=== PATIENT | male | born 1960 | race Caucasian/White ===

== ENCOUNTER 2017-05-03 00:44 | Observation (INO) ==
[2017-05-03] MEDS ORDERED: 0.9 % Sodium Chloride 1,000 ML IVC ONE (01:53)
[2017-05-03] MEDS ORDERED: *HR* Promethazine 25 MG/ML VIAL IVP ONE (01:53)
--- NOTE | 2017-05-03 01:55 | Emergency Department Note ---
Disposition Clinical Impression: Nausea and vomiting Qualifiers: Vomiting type: unspecified Vomiting Intractability: intractable Qualified Code( s): R11.2 - Nausea with vomiting, unspecified Disposition: Admitted As Inpatient Condition: Fair Time of Disposition: 06:49 Nausea/Vomiting/Diarrhea HPI - General Chief complaint: ED Nausea/Vomiting/Diarrhea Stated complaint: n/v weakness Time Seen by Provider: 05/03/17 01:14 Source: patient Mode of arrival: wheelchair Limitations: no limitations Nursing Notes Reviewed: Yes Vital Signs Reviewed: Yes - History of Present Illness HPI Narrative: Presents to the emergency department with continued complaints of nausea with vomiting. He was seen 2 days ago in the emergency department and at that time had a complete workup. His CT at that time was negative, labs were essentially normal. He is sent home with can prescription for Phenergan which she has used and then does seem to help with the nausea however tonight the nausea with the vomiting resumed and he has been unable to keep anything down. He states that the abdominal pain is less severe but the nausea is quite intense. He does not report any fever that he is aware of. He has not been around any sick contacts. Pt Subjective Complaint: nausea, vomiting, abdominal pain Onset (ago): day(s) (3-4) Description of emesis: watery Associated Abdominal Pain: Yes If pain, Location of pain: diffuse, epigastric Severity: moderate, severe Severity scale (1-10): 9 Quality: cramping Consistency: Worsening Improves with: nothing, vomiting Associated symptoms: Reports: denies other symptoms - Related Data Previous Rx's Medication Instructions Recorded Promethazine [Phenergan] 25 mg PO Q6HR PRN #10 tablet 04/30/17 Allergies Allergy/AdvReac Type Severity Reaction Status Date / Time No Known Drug Allergies Allergy See Verified 04/30/17 16:41 Comments All systems ED: reviewed and negative except as stated. Constitutional: Reports: weight change Eyes: Denies: eye pain, eye discharge, vision change ENT ED: Denies: ear pain, throat pain, dental pain, hearing loss, epistaxis, congestion, dysphagia Cardiovascular: Denies: chest pain, palpitations, dyspnea on exertion, edema, syncope Respiratory: Denies: cough, dyspnea, wheezes, hemoptysis, stridor Gastrointestinal: Reports: abdominal pain, nausea, vomiting. Denies: diarrhea, constipation, hematemesis, melena, hematochezia Genitourinary: Denies: urgency, dysuria, frequency, hematuria Musculoskeletal: Denies: back pain, neck pain, arthralgia, myalgia Integumentary: Denies: rash, abrasion, lesions Past Medical History - Past Medical History Attestation: Yes The following information was validated with the patient. Source: patient, nursing notes reviewed Medical history: Reports: CVA, hypertension, other Psychiatric history: Reports: anxiety, depression - Social History Smoking Status: Current every day smoker Smokeless Tobacco Status: No Alcohol use: Reports: rarely Drug use: Reports: none Physical Exam - General Limitations: no limitations General appearance: alert, in no apparent distress - Head Head exam: atraumatic, normocephalic, normal inspection - Eye Eye exam: Present: normal appearance, PERRL, EOMI - ENT ENT exam: normal exam, normal oropharynx, mucous membranes moist - Neck Neck exam: Present: normal inspection, full ROM, trachea midline - Chest Chest inspection: Present: normal inspection, symmetric chest wall rise - Respiratory Respiratory exam: Present: normal lung sounds bilaterally - Cardiovascular Cardiovascular exam: Present: regular rate, normal rhythm, normal heart sounds - Abdominal Exam Abdominal exam: Present: tenderness, diminished bowel sounds. Absent: distention, guarding, rebound Abdominal tenderness: Present: epigastrium - Extremities Exam Extremities exam: Present: normal inspection, full ROM. Absent: tenderness, pedal edema - Expanded Lower Extremity Exam Hip/Pelvis exam: Present: normal inspection, full ROM Upper leg exam: Present: normal inspection, full ROM Knee exam: Present: normal inspection, full ROM Lower leg exam: Present: normal inspection, full ROM Ankle exam: Present: normal inspection, full ROM Foot/toe exam: Present: normal inspection, full ROM Neurovascular/Tendon exam: Absent: motor deficit, sensory deficit, tendon deficit - Back Exam Back exam: Present: normal inspection, full ROM. Absent: tenderness - Neurological Exam Neurological exam: Present: alert, oriented X3 - Psychiatric Psychiatric exam: Present: normal affect, normal mood - Skin Skin exam: Present: warm, dry, intact, normal color Course Vital Signs Temperature 98.1 F 05/03/17 00:45 Pulse Rate 63 05/03/17 00:45 Respiratory Rate 18 05/03/17 00:45 Blood Pressure 163/97 05/03/17 00:45 O2 Sat by Pulse Oximetry 99 05/03/17 00:45 Temperature 0 F L 05/03/17 03:38 Pulse Rate 63 05/03/17 00:45 Respiratory Rate 18 05/03/17 03:38 Blood Pressure 158/88 05/03/17 03:38 O2 Sat by Pulse Oximetry 99 05/03/17 00:45 Oxygen Delivery Oxygen Delivery Room Air Nausea/Vomiting/Diarrhea - MDM Narrative Medical decision making narrative: intractable vomiting - Lab Data Lab results reviewed: Yes I reviewed the patient's lab results. Result diagrams: 05/03/17 02:11 05/03/17 02:11 Lab Results 05/03/17 05/03/17 Range/Units 02:11 02:11 WBC 10.2 (4.3-11.1) K/mcL RBC 6.09 H (4.19-5.50) M/mcL Hgb 17.4 H (12.9-16.9) g/dL Hct 52.2 H (37.5-50.1) % MCV 85.7 (83.0-100.0) fL MCH 28.6 (28.0-33.3) pg MCHC 33.3 (31.6-35.5) g/dL RDW 13.1 (11.5-14.5) % Plt Count 192 (140-400) K/mcL MPV 10.0 (9.4-12.4) fL Immature Gran % 0.4 (0-4) % Seg Neutrophils % 86.7 % Lymphocytes % 10.5 % Monocytes % 2.0 % Eosinophils % 0.1 % Basophils % 0.3 % Neutrophils # 8.9 (1.6-8.9) K/mcL Lymphocytes # 1.1 (0.6-4.6) K/mcL Monocytes # 0.2 (0.0-1.3) K/mcL Eosinophils # 0.0 (0.0-0.6) K/mcL Basophils # 0.0 (0.0-0.2) K/mcL Sodium 141 (136-145) mEq/L Potassium 3.7 (3.5-4.5) mEq/L Chloride 104 (98-109) mEq/L Carbon Dioxide 28 (19-29) mEq/L BUN 15 (8-26) mg/dL Creatinine 1.20 (0.72-1.25) mg/dL Est GFR ( Amer) > 60 (> 60) Est GFR (Non-Af Amer) > 60 (> 60) BUN/Creatinine Ratio 13 (6-26) Glucose 127 H (70-99) mg/dL Calculated Osmolality 294 (280-300) Calcium 9.7 (8.6-10.8) mg/dL Total Bilirubin 0.9 (0.2-1.2) mg/dL AST 18 (5-34) Units/L ALT 13 (0-55) Units/L Alkaline Phosphatase 75 (38-126) Units/L Serum Total Protein 7.5 (6.0-8.3) g/dL Albumin 3.9 (3.5-5.0) g/dL Globulin 3.6 H (2.4-3.5) g/dL Albumin/Globulin Ratio 1.1 (1.1-2.2) Lipase 14 (8-78) Units/L
[2017-05-03 02:17] LABS: Basophils % 0.3 %; Eosinophils % 0.1 %; Hematocrit 52.2 % (37.5-50.1); Hemoglobin 17.4 g/dL (12.9-16.9); Immature Granulocytes % 0.4 % (0-4); Lymphocytes # 1.1 K/mcL (0.6-4.6); Lymphocytes % 10.5 %; Mean Corpuscular HGB Conc 33.3 g/dL (31.6-35.5); Mean Corpuscular Hemoglobin 28.6 pg (28.0-33.3); Mean Corpuscular Volume 85.7 fL (83.0-100.0); Monocytes # 0.2 K/mcL (0.0-1.3); Neutrophils # 8.9 K/mcL (1.6-8.9); Platelet Count 192 K/mcL (140-400); Red Blood Count 6.09 M/mcL (4.19-5.50); Red Cell Distribution Width 13.1 % (11.5-14.5); Segmented Neutrophils % 86.7 %
[2017-05-03 02:33] LABS: Alanine Aminotransferase 13 Units/L (0-55); Albumin 3.9 g/dL (3.5-5.0); Albumin/Globulin Ratio 1.1 (1.1-2.2); Alkaline Phosphatase 75 Units/L (38-126); Aspartate Amino Transferase 18 Units/L (5-34); BUN/Creatinine Ratio 13 (6-26); Bilirubin,Total 0.9 mg/dL (0.2-1.2); Blood Urea Nitrogen 15 mg/dL (8-26); Calcium 9.7 mg/dL (8.6-10.8); Carbon Dioxide 28 mEq/L (19-29); Chloride 104 mEq/L (98-109); Globulin 3.6 g/dL (2.4-3.5); Glucose 127 mg/dL (70-99); Lipase 14 Units/L (8-78); Osmolality,Calculated 294 (280-300); Potassium 3.7 mEq/L (3.5-4.5); Sodium 141 mEq/L (136-145); Total Protein 7.5 g/dL (6.0-8.3); eGFR For African Americans > 60 (> 60); eGFR For Non-African Americans > 60 (> 60)
[2017-05-03] MEDS ORDERED: Naloxone 0.4 MG/ML INJ IVP PRN (05:29)
[2017-05-03] MEDS ORDERED: *HR* Promethazine 25 MG/ML VIAL IVP PRN (05:32)
--- NOTE | 2017-05-03 05:42 | Internal Med History&Physical ---
Date of Encounter: 05/03/17 Time of Encounter: 05:05 Assessment and Plan (1) Nausea and vomiting Current visit: Yes Status: Acute Likely of viral etiology continue supportive care will continue Phenergan 12.5mg IV q4h prn nausea/vomiting continue IV fluids Protonix 40mg IV qd clear liquid diet, advance as tolerated Qualifiers: Vomiting type: unspecified Vomiting Intractability: intractable Qualified Code(s): R11.2 - Nausea with vomiting, unspecified (2) Hypertension Current visit: Yes Status: Chronic continue to monitor continue Home meds Qualifiers: Hypertension type: essential hypertension Qualified Code(s): I10 - Essential (primary) hypertension (3) History of CVA (cerebrovascular accident) Current visit: Yes Status: Chronic reports of having residual left sided weakness but able to ambulate well without any distress continue ASA and Plavix (4) DVT prophylaxis Current visit: Yes Status: Acute Heparin SQ (5) Tobacco abuse Current visit: Yes Status: Acute smoking cessation counseling provided patient refused nicotine replacement therapy at this time Internal Medicine - H&P: HPI Chief complaint: nausea/vomiting Admitted From: Home Plans for Post Hospital Care: Home History of present illness: Mr. 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 Patient was seen in the ER two days ago for the same complains and was discharged after receiving IV fluids and Phenergan. His nausea was refractory to Zofran due to which Phenergan was started. He reports of mild relief with Phenergan and the nausea and vomiting has persisted. He states he has had minimal PO intake in the last two days. Also complains of epigastric discomfort at this time. Denies any preceding events prior to acute onset of this nausea. Denies any abd pain, fever , or chills. Reports of being an everyday smoker. Past Med Surg Social Fam HX - Past Medical History Medical history: CVA, hypertension, other Psychiatric history: anxiety, depression - Social History Smoking Status: Current every day smoker Smokeless Tobacco Status: No Alcohol use: rarely Drug use: none - Family History Father Living Status: Hx Family Cardiac Disorders: No Hx Family Respiratory Disorders: No Hx Family Cancer: Yes (prostate cancer) Hx Family GI Disorders: No Hx Family Genitourinary Disorders: No Hx Family Endocrine Disorder: No Hx Family Musculoskeletal Disorders: No Hx Family Neuromuscular Disorders: No Hx Family Neurologic Disorders: No Hx Family HEENT Disorders: No Hx Family Autoimmune Disorders: No Hx Family Reproductive Disorders: No Hx Family Psychosocial Disorders: No Hx Family Medical Disorders: No Internal Medicine - H&P: Meds Promethazine [Phenergan] 25 mg PO Q6HR PRN #10 tablet 04/30/17 [Rx] Allergies No Known Drug Allergies Allergy (Verified 04/30/17 16:41) See Comments All Systems PM: A 10-system review of systems was performed and is negative for pertinent findings except as documented above in the HPI. - Constitutional Constitutional: as per HPI - Constitutional Vitals: Temp Pulse Resp BP Pulse Ox 0 F L 63 18 158/88 99 05/03/17 03:38 05/03/17 00:45 05/03/17 03:38 05/03/17 03:38 05/03/17 00:45 General appearance: Present: cooperative, A&O X 3, no acute distress, answers questions appropriately - Head Head exam: Present: atraumatic, normocephalic - Eye Eye exam: Present: normal appearance, conjuntiva pink, sclera anicteric - Respiratory Respiratory exam: Present: CTAB. Absent: accessory muscle use, rales, rhonchi, wheezes - Cardiovascular Cardiovascular exam: Present: RRR, +S1, +S2. Absent: diastolic murmur, gallop, rubs, systolic murmur - GI/Abdominal GI/Abdominal exam: Present: normal bowel sounds, soft. Absent: distended, tenderness - Extremities Exam Extremities exam: Present: warm, radial pulses palpable and symetrical. Absent : calf tenderness, cyanotic, pedal edema - Neurological Exam Neurological exam: Present: alert, oriented X3 - Psychiatric Psychiatric exam: Present: normal affect, normal mood Internal Med - H&P Results - Labs CBC & Chem 7: 05/03/17 02:11 05/03/17 02:11
[2017-05-03] MEDS: 0.9 % Sodium Chloride 1,000 ML IVC SCH ×2 (06:04→20:04)
[2017-05-03] MEDS: Pantoprazole 40 MG VIAL IVP SCH (06:07)
[2017-05-03] MEDS: *HR* Heparin 5,000 UNIT/ML VIAL SQ SCH ×2 (06:10→18:24)
[2017-05-03] MEDS ORDERED: Aspirin 81 MG TAB.CHEW PO SCH (09:00)
[2017-05-03] MEDS ORDERED: Acetaminophen 325 MG TABLET PO PRN (12:10)
[2017-05-03] MEDS ORDERED: *HR* HYDROcodone/Acet 5/325 mg TABLET PO PRN (12:10)
--- NOTE | 2017-05-03 12:22 | Event Note ---
Date of Encounter: 05/03/17 Time of Encounter: 10:15 Patient seen and examined. On examination, patient resting supine in bed. Patient complaining of severe epigastric abdominal pain. He is also endorsing nausea but states it has lessened since admission. Hypertension noted, home medications continued, will trend his blood pressure and adjust medications accordingly. We will also address his pain. On examination, patient alert and oriented 3. Lungs are clear to auscultation bilaterally with good aeration. He does have epigastric tenderness present on examination-Will add Carafate and assess his response. We will continue with pain and nausea control and advance his diet as tolerated.
[2017-05-03] MEDS: Sucralfate 1 GM TABLET PO SCH ×3 (12:33→22:03)
[2017-05-03] MEDS: *HR* HYDROmorphone (PF) 1 MG/ML SYRINGE IVP PRN ×2 (12:33→20:08)
[2017-05-03] MEDS: *HR* Promethazine 25 MG/ML VIAL IVP PRN ×2 (12:33→20:09)
[2017-05-03] MEDS: *HR* LORazepam 1 MG TABLET PO SCH ×2 (16:47→22:01)
[2017-05-04 04:36] LABS: Basophils % 0.2 %; Eosinophils # 0.1 K/mcL (0.0-0.6); Eosinophils % 0.6 %; Hematocrit 44.7 % (37.5-50.1); Immature Granulocytes % 0.2 % (0-4); Lymphocytes # 2.8 K/mcL (0.6-4.6); Lymphocytes % 31.7 %; Mean Corpuscular Volume 85.1 fL (83.0-100.0); Mean Platelet Volume 10.2 fL (9.4-12.4); Monocytes # 0.5 K/mcL (0.0-1.3); Monocytes % 5.1 %; Neutrophils # 5.5 K/mcL (1.6-8.9); Platelet Count 163 K/mcL (140-400); Red Blood Count 5.25 M/mcL (4.19-5.50); Red Cell Distribution Width 12.9 % (11.5-14.5); Segmented Neutrophils % 62.2 %
[2017-05-04 04:49] LABS: Hemoglobin 15.2 g/dL (12.9-16.9)
[2017-05-04 04:54] LABS: BUN/Creatinine Ratio 11 (6-26); Blood Urea Nitrogen 10 mg/dL (8-26); Calcium 8.7 mg/dL (8.6-10.8); Carbon Dioxide 26 mEq/L (19-29); Chloride 110 mEq/L (98-109); Glucose 89 mg/dL (70-99); Magnesium 1.9 mg/dL (1.6-2.6); Osmolality,Calculated 291 (280-300); Phosphorous 2.9 mg/dL (2.3-4.7); Potassium 3.7 mEq/L (3.5-4.5); Sodium 141 mEq/L (136-145); eGFR For African Americans > 60 (> 60); eGFR For Non-African Americans > 60 (> 60)
[2017-05-04] MEDS: Sucralfate 1 GM TABLET PO SCH ×2 (06:34→11:15)
[2017-05-04] MEDS: Pantoprazole 40 MG VIAL IVP SCH (06:34)
[2017-05-04] MEDS: *HR* Heparin 5,000 UNIT/ML VIAL SQ SCH (06:34)
[2017-05-04] MEDS: *HR* LORazepam 1 MG TABLET PO SCH (08:25)
[2017-05-04] MEDS ORDERED: Aspirin Enteric Coated 325 MG Tablet PO SCH (09:00)
[2017-05-04] MEDS: 0.9 % Sodium Chloride 1,000 ML IVC SCH (09:31)
[2017-05-04 15:11] VITALS: BP 136/76
--- NOTE | 2017-05-04 15:20 | Discharge Summary ---
Date of Encounter: 05/04/17 Time of Encounter: 12:00 - Discharge Diagnosis (1) Gastric ulcer Priority: Primary Status: Suspected Qualifiers: Gastric ulcer chronicity: acute Gastric ulcer complication status: without hemorrhage or perforation Qualified Code(s): K25.3 - Acute gastric ulcer without hemorrhage or perforation (2) Gastroenteritis Priority: Primary Status: Resolved (3) Nausea and vomiting Priority: Primary Status: Resolved Qualifiers: Vomiting type: unspecified Vomiting Intractability: intractable Qualified Code(s): R11.2 - Nausea with vomiting, unspecified (4) Dehydration Priority: Primary Status: Resolved (5) Hypertension Priority: Secondary Status: Chronic Comments: Controlled, follow-up outpatient. Qualifiers: Hypertension type: essential hypertension Qualified Code(s): I10 - Essential (primary) hypertension (6) History of CVA (cerebrovascular accident) Priority: Secondary Status: Chronic Comments: Patient remains with residual left-sided weakness, no new focal neurological weakness is present on examination. (7) DVT prophylaxis Priority: Primary Status: Acute Comments: Subcutaneous heparin while admitted (8) Tobacco abuse Priority: Secondary Status: Chronic Comments: Declined counseling - Discharge Medications Prescriptions: Sucralfate [Carafate] 1 gm PO QIDAC #120 tablet Home Medications: Promethazine [Phenergan] 25 mg PO Q6HR PRN #10 tablet 04/30/17 [Rx] Allopurinol [Zyloprim 100 MG] 100 mg PO DAILY 05/03/17 [History] Ascorbate Calcium [Vitamin C] 500 mg PO DAILY 05/03/17 [History] Aspirin [Ecotrin] 325 mg PO DAILY 05/03/17 [History] Atorvastatin Calcium [Lipitor] 20 mg PO DAILY 05/03/17 [History] Clopidogrel [Plavix] 75 mg PO DAILY 05/03/17 [History] LORazepam [Ativan] 1 mg PO TID 05/03/17 [History] Lisinopril [Zestril] 5 mg PO DAILY 05/03/17 [History] Sertraline [Zoloft] 100 mg PO DAILY 05/03/17 [History] Sildenafil Citrate [Revatio] 20 mg PO DAILY PRN 05/03/17 [History] Sucralfate [Carafate] 1 gm PO QIDAC #120 tablet 05/04/17 [Rx] Allergies/Adverse Reactions: Allergies No Known Drug Allergies Allergy (Verified 04/30/17 16:41) See Comments Date of admission: 05/03/17 03:17 Primary care physician: Christiano Smallwood Discharging clinician: Tiff Tolbert Anticipated date of discharge: 05/04/17 - Patient Status Disposition: Home, Self-Care Condition: Fair Functional capacity at discharge: independent ambulation Overall status at discharge: patient is back to baseline - Discharge Instructions Follow Up With: Jalen Ruffin DO [Primary Care Provider] - 05/10/17 8:00 am Additional Instructions: Follow-up with primary care provider as scheduled - Diet and Activity Activity: increase activity as tolerated Diet: low fat, low cholesterol, low salt diet Hospital course: Mr. Eason is a 56 year old male with past medical history of hypertension, prior CVA with residual left-sided weakness, gout, tobacco abuse. Patient presented to the emergency department chief complaint of persistent nausea and vomiting for 3 days. Patient was seen in the emergency department 2 days prior to this presentation with the same complaint and was discharged after receiving IV fluids and Phenergan. His nausea was refractory to Zofran and he was sent home with Phenergan. Patient reported mild relief with Phenergan after going home but stated that the nausea and vomiting have persisted prompting his return to the emergency department. Patient also complained of epigastric pain. Workup in the emergency department unremarkable. Patient was admitted to the hospitalist service for further evaluation and management. Patient was hypertensive until his nausea and vomiting were controlled, then his blood pressure was better controlled. He was admitted and observed over the course of one night and his diet was slowly advanced. He was able to tolerate a regular diet prior to discharge. He did not require any pain medicine, or nausea medicine on day of discharge. He was given Carafate while admitted which he states relieved his epigastric pain- and he was sent home on carafate for a suspected gastric ulcer/irritation. Patient said he has had epigastric pain for quite some time and this episode of persistent vomiting over several days likely irritated his suspected gastric ulcer. He was discharged home in stable condition with close outpatient follow-up recommended. - Time Spent with Patient Total time spent providing and/or coordinating discharge services: - Constitutional Vitals: Temp Pulse Resp BP Pulse Ox 98.3 F 61 14 136/76 97 05/04/17 15:05/04/17 15:05/04/17 15:05/04/17 15:05/04/17 15:09 General appearance: Present: cooperative, A&O X 3, pleasant, no acute distress, answers questions appropriately - Head Head exam: Present: atraumatic, normocephalic - Eye Eye exam: Present: PERRL, conjuntiva pink, sclera anicteric Pupils: Present: PERRL - Neck Neck exam general surgery: Present: supple, trachea midline. Absent: lymphadenopathy - Respiratory Respiratory exam: Present: decreased breath sounds. Absent: accessory muscle use, rales, respiratory distress, rhonchi, wheezes - Cardiovascular Cardiovascular exam: Present: RRR, +S1, +S2. Absent: diastolic murmur, gallop, rubs, systolic murmur - GI/Abdominal GI/Abdominal exam: Present: normal bowel sounds, soft, no peritoneal signs. Absent: distended, tenderness - Extremities Exam Extremities exam: Present: warm, radial pulses palpable and symetrical. Absent : calf tenderness, cyanotic, pedal edema - Neurological Exam Neurological exam: Present: alert, CN II-XII intact, oriented X3, no focal deficits. Absent: strengths equal and symetr throughout (chronic left sided weakness), pronater drift, facial droop, speech deficit - Skin Skin exam: Present: dry, intact, normal color, warm
== END 2017-05-04 15:50 | disposition home or self-care (01) ==
LOC: EMEROO 00:44 → 3BNU 00:44
PROVIDERS: ADMIT Internal Medicine; ATTEND Nurse Practitioner Family